=== PATIENT | male | born 1955 | race Caucasian/White ===

== ENCOUNTER → 2024-08-13 11:03 | Outpatient (BNVA) | payer MEDICARE, OTHER, SELFPAY | PROVIDERS: Visit Provider Podiatrist Foot & Ankle Surgery | DX: M79.671 Pain in right foot (principal); M79.672 Pain in left foot; M77.41 Metatarsalgia, right foot; M77.42 Metatarsalgia, left foot; M21.611 Bunion of right foot; M21.612 Bunion of left foot; M20.21 Hallux rigidus, right foot; M20.22 Hallux rigidus, left foot; L60.3 Nail dystrophy | CPT/HCPCS: 73630; 99203 ==

== ENCOUNTER 2024-09-24 09:31 | Outpatient (CLI) | payer MEDICARE, SELFPAY | END 2024-09-24 09:32 | disposition home or self-care (01) | LOC: SPT 09:31 | PROVIDERS: Visit Provider Podiatrist Foot & Ankle Surgery | DX: Z46.89 Encounter for fitting and adjustment of other specified devices (principal); M79.671 Pain in right foot; M79.672 Pain in left foot; M21.611 Bunion of right foot; M21.612 Bunion of left foot | CPT/HCPCS: L3030 ==

== ENCOUNTER 2025-03-18 14:57 | Oncology outpatient (recurring) (ONCR) | payer MEDICARE, SELFPAY ==
[2025-03-15 16:07] LABS: Hematocrit 41.4 % (37-53); Hemoglobin 13.50 g/dL (11.27-16.99); Mean Corpuscular HGB Conc 32.6 g/dL (30-55); Mean Corpuscular Hemoglobin 29.3 pg (27-33); Mean Corpuscular Volume 90.0 fl (82-101); Nucleated Red Blood Cells % 0 %; Platelet Count 224 10^3/cmm (157-399); Red Blood Count 4.60 10^6/uL (3.85-5.65); White Blood Count 11.32 10^3/uL (3.29-11.43)
[2025-03-15 16:25] LABS: Alanine Aminotransferase 11 U/L (0-41); Albumin Level 4.1 g/dL (3.5-5.2); Alkaline Phosphatase 74 U/L (40-130); Anion Gap 20.9 (5-19); Aspartate Amino Transferase 11 U/L (0-40); Calcium 10.6 mg/dL (8.5-10.5); Carbon Dioxide 25 mmol/L (22-29); Chloride 100 mmol/L (98-107); Globulin 3.2 g/dL (1.3-4.6); Glucose 150 mg/dL (65-115); Osmolality Calculated 319 mOsm/kg (285-295); Potassium 4.9 mmol/L (3.5-5.1); Sodium 141 mmol/L (136-145); Total Protein 7.3 g/dL (6.6-8.7)
[2025-03-15 16:26] LABS: Blood Urea Nitrogen 81 mg/dL (8-23)
[2025-03-16 05:29] LABS: PROTEIN, TOTAL 6.8 g/dL (6.1-8.1)
[2025-03-16 11:30] LABS: KAPPA LIGHT CHAIN, FREE, SERUM 55.6 mg/L (3.3-19.4); KAPPA/LAMBDA LIGHT CHAINS FREE 1.37 (0.26-1.65); LAMBDA LIGHT CHAIN, FREE, SERU 40.6 mg/L (5.7-26.3)
[2025-03-17 09:40] LABS: ALPHA 1 GLOBULIN 0.4 g/dL (0.2-0.3); ALPHA 2 GLOBULIN 0.7 g/dL (0.5-0.9); BETA 1 GLOBULIN 0.3 g/dL (0.4-0.6); BETA 2 GLOBULIN 0.4 g/dL (0.2-0.5)
== END 2025-03-23 23:59 | disposition home or self-care (01) ==
PROVIDERS: Internal Medicine; Visit Provider Internal Medicine Medical Oncology
DX: C90.01 Multiple myeloma in remission (principal)
CPT/HCPCS: 36415; 80053; 82784; 83615; 83883; 84155; 84165; 85025; 99205

== ENCOUNTER 2025-06-16 08:27 | Outpatient (CLI) | payer MEDICARE, OTHER, SELFPAY ==
--- NOTE | 2025-06-16 08:33 | XR_ITS ---
WS: [id number] Bone survey, 06/16/2025 Clinical Data: Multiple myeloma Comparison: None. Findings: Lateral skull: Negative, no abnormal lucencies. Lateral cervical spine: Negative. AP and lateral thoracic spine: Osteoarthritis is present. No compression fractures are seen. No metastatic lesions are noted. AP and lateral lumbar spine: There is an L1 compression fracture which is old. There are calcifications overlying the left kidney. No metastatic lesions are present. Bilateral rib detail: There is sclerotic change of the right scapular neck. There is lucency of the body of the right scapula. The ribs show no abnormal lesions. Bilateral arms and humeri: No metastatic lesions are seen. AP pelvis: No metastatic lesions are seen. Bilateral hips, thighs and femur: Negative. XR/XR bone survey* [id number] Impression: 1. L1 compression fracture which is old. 2. Sclerosis of the right scapular neck with lucency of body of the scapula whi ch may represent multiple myeloma of indeterminate age.
== END 2025-06-16 08:28 | disposition home or self-care (01) ==
LOC: RAD 08:30
PROVIDERS: PCP Family Medicine; Visit Provider Internal Medicine Medical Oncology
DX: C90.01 Multiple myeloma in remission (principal); E83.59 Other disorders of calcium metabolism; M47.816 Spondylosis without myelopathy or radiculopathy, lumbar region; S32.010S Wedge compression fracture of first lumbar vertebra, sequela; X58.XXXS Exposure to other specified factors, sequela; R93.89 Abnormal findings on diagnostic imaging of other specified body structures
CPT/HCPCS: 77075

== ENCOUNTER 2025-06-16 11:40 | Oncology outpatient (recurring) (ONCR) | payer MEDICARE, OTHER, SELFPAY ==
[2025-06-07 11:42] LABS: Hematocrit 42.3 % (37-53); Hemoglobin 13.40 g/dL (11.27-16.99); Mean Corpuscular HGB Conc 31.7 g/dL (30-55); Mean Corpuscular Hemoglobin 29.3 pg (27-33); Mean Corpuscular Volume 92.4 fl (82-101); Nucleated Red Blood Cells % 0 %; Platelet Count 205 10^3/cmm (157-399); Red Blood Count 4.58 10^6/uL (3.85-5.65); White Blood Count 11.61 10^3/uL (3.29-11.43)
[2025-06-07 11:59] LABS: Alanine Aminotransferase 8 U/L (0-41); Albumin Level 4.1 g/dL (3.5-5.2); Alkaline Phosphatase 79 U/L (40-130); Anion Gap 15.7 (5-19); Aspartate Amino Transferase 13 U/L (0-40); Blood Urea Nitrogen 60 mg/dL (8-23); Calcium 10.3 mg/dL (8.5-10.5); Carbon Dioxide 28 mmol/L (22-29); Chloride 102 mmol/L (98-107); Globulin 2.8 g/dL (1.3-4.6); Glucose 109 mg/dL (65-115); Osmolality Calculated 309 mOsm/kg (285-295); Potassium 4.7 mmol/L (3.5-5.1); Sodium 141 mmol/L (136-145); Total Protein 6.9 g/dL (6.6-8.7)
[2025-06-07 15:02] LABS: Iron 66 ug/dL (59-158); Total Iron Binding Capacity 205 mcg/dl; Unsaturated Iron Binding 139 ug/dL (112-347)
[2025-06-07 15:14] LABS: Vitamin B12 575 pg/mL (232-1245)
[2025-06-07 15:15] LABS: Ferritin 1213 ng/mL (30-400)
[2025-06-08 06:54] LABS: PROTEIN, TOTAL 6.8 g/dL (6.1-8.1)
[2025-06-08 18:20] LABS: ALPHA 1 GLOBULIN 0.3 g/dL (0.2-0.3); ALPHA 2 GLOBULIN 0.7 g/dL (0.5-0.9); BETA 1 GLOBULIN 0.3 g/dL (0.4-0.6); BETA 2 GLOBULIN 0.4 g/dL (0.2-0.5)
[2025-06-10 13:04] LABS: KAPPA LIGHT CHAIN, FREE, SERUM 57.8 mg/L (3.3-19.4); KAPPA/LAMBDA LIGHT CHAINS FREE 1.36 (0.26-1.65); LAMBDA LIGHT CHAIN, FREE, SERU 42.5 mg/L (5.7-26.3)
== END 2025-06-23 23:59 | disposition home or self-care (01) ==
PROVIDERS: Internal Medicine; Visit Provider Internal Medicine
DX: C90.01 Multiple myeloma in remission (principal); N18.9 Chronic kidney disease, unspecified; E83.59 Other disorders of calcium metabolism; M47.816 Spondylosis without myelopathy or radiculopathy, lumbar region; S32.010S Wedge compression fracture of first lumbar vertebra, sequela; X58.XXXS Exposure to other specified factors, sequela; R93.89 Abnormal findings on diagnostic imaging of other specified body structures
CPT/HCPCS: 36415; 80053; 82607; 82728; 82746; 82784; 83010; 83540; 83550; 83615; 83883; 84155; 84165; 85025; 86334; 86880; 99213